=== PATIENT | female | born 1950 | race African-American/Black ===

== ENCOUNTER → 2017-09-15 | Outpatient (CLI) | payer MEDICARE | END | disposition home or self-care (01) | LOC: ECHO 09:59 | DX: I25.10 Atherosclerotic heart disease of native coronary artery without angina pectoris (principal); I08.2 Rheumatic disorders of both aortic and tricuspid valves | CPT/HCPCS: 93306 ==

== ENCOUNTER 2020-06-10 14:00 | Observation (INO) | payer MEDICARE, BC ==
[~2020-06-10] VITALS: Ht 160 cm; Wt 58.8 kg
[~2020-06-10 14:00] MED LIST: ATEN25TA PO; DULO20CA PO; FERR325T58 PO
--- NOTE | 2020-06-10 14:12 | PHYS DOC ---
Past Medical History Past Medical History: CAD, High Cholesterol, Hypertension Smoking Status: Former Smoker (as a teenager) General Adult EDM: Chief Complaint: CHEST PAIN HPI: HPI: Patient is a 70 year old female who arrives via EMS with a chief complaint of chest pain. Patient was about to have a colonoscopy and started having right- sided chest pain that is aching in nature nonradiating, patient states the most pain she was in was 3 out of 10 although EMS reported 9 out of 10. Patient denies any associated symptoms such as shortness of breath, nausea, vomiting or dizziness. Patient received aspirin nitroglycerin prior to arrival. Patient remains pain-free ,pain lasted for approximately 5 minutes Review of Systems: Review of Systems: Constitutional: Denies fever or chills. [] Eyes: Denies change in visual acuity. [] HENT: Denies nasal congestion or sore throat. [] Respiratory: Denies cough or shortness of breath. [] Cardiovascular: Complains of chest pain but no edema GI: Denies abdominal pain, nausea, vomiting, bloody stools or diarrhea. [] : Denies dysuria. [] Musculoskeletal: Denies back pain or joint pain. [] Integument: Denies rash. [] Neurologic: Denies headache, focal weakness or sensory changes. [] Endocrine: Denies polyuria or polydipsia. [] Lymphatic: Denies swollen glands. [] Psychiatric: Denies depression or anxiety. [] Heart Score: HEART Score for Chest Pain: HEART Score for Chest Pain Response (Comments) Value History Slighlty/Non-Suspicious 0 ECG Nonspecific Repolarizatio 1 Age > 65 2 Risk Factors 1 or 2 Risk Factors 1 Troponin < Normal Limit 0 Total 4 Risk Factors: Risk Factors: DM, Current or recent (<one month) smoker, HTN, HLP, family history of CAD, obesity. Risk Scores: Score 0 - 3: 2.5% MACE over next 6 weeks - Discharge Home Score 4 - 6: 20.3% MACE over next 6 weeks - Admit for Clinical Observation Score 7 - 10: 72.7% MACE over next 6 weeks - Early Invasive Strategies Current Medications: Active Scripts Active Physical Exam: PE: Constitutional: Well developed, well nourished, no acute distress, non-toxic appearance. [] HENT: Normocephalic, atraumatic, bilateral external ears normal, no trismus, nose normal. [] Eyes: PERRLA, EOMI, conjunctiva normal, no discharge. [] Neck: Normal range of motion, no tenderness, supple, no stridor. [] Cardiovascular:Heart rate regular rhythm, peripheral pulses are intact cap refill is brisk Lungs & Thorax: Bilateral breath sounds clear, no respiratory distress Abdomen: soft, no tenderness, no masses, no pulsatile masses. [] Skin: Warm, dry, no erythema, no rash. [] Back: No tenderness, no CVA tenderness. [] Extremities: No tenderness, no cyanosis, no clubbing, ROM intact, no edema. [] Neurologic: Alert and oriented X 3, normal motor function, normal sensory function, no focal deficits noted. [] Psychologic: Affect normal, judgement normal, mood normal. [] Current Patient Data: Labs: Laboratory Tests Test 06/10/20 14:45 06/10/20 16:25 White Blood Count 4.8 x10^3/uL Red Blood Count 4.79 x10^6/uL Hemoglobin 13.2 g/dL Hematocrit 39.7 % Mean Corpuscular Volume 83 fL Mean Corpuscular Hemoglobin 28 pg Mean Corpuscular Hemoglobin Concent 33 g/dL Red Cell Distribution Width 14.2 % Platelet Count 152 x10^3/uL Neutrophils (%) (Auto) 71 % Lymphocytes (%) (Auto) 22 % Monocytes (%) (Auto) 6 % Eosinophils (%) (Auto) 1 % Basophils (%) (Auto) 1 % Neutrophils # (Auto) 3.4 x10^3/uL Lymphocytes # (Auto) 1.0 x10^3/uL Monocytes # (Auto) 0.3 x10^3/uL Eosinophils # (Auto) 0.0 x10^3/uL Basophils # (Auto) 0.0 x10^3/uL Sodium Level 144 mmol/L Potassium Level 4.6 mmol/L Chloride Level 107 mmol/L Carbon Dioxide Level 27 mmol/L Anion Gap 10 Blood Urea Nitrogen 14 mg/dL Creatinine 0.8 mg/dL Estimated GFR (Cockcroft-Gault) 85.8 BUN/Creatinine Ratio 18 Glucose Level 86 mg/dL Calcium Level 9.6 mg/dL Magnesium Level 2.6 mg/dL Total Bilirubin 0.5 mg/dL Aspartate Amino Transf (AST/SGOT) 17 U/L Alanine Aminotransferase (ALT/SGPT) 26 U/L Alkaline Phosphatase 74 U/L Troponin I Quantitative < 0.017 ng/mL NI-Ywe-F-Type Natriuretic Peptide 116 pg/mL Total Protein 7.3 g/dL Albumin 4.3 g/dL Albumin/Globulin Ratio 1.4 Lipase 97 U/L Current Medications Medications (Trade) Dose Ordered Sig/Rose Route PRN Reason Start Time Stop Time Status Last Admin Dose Admin Sodium Chloride 500 ml @ 500 mls/hr 1X ONCE IV 06/10/20 16:30 06/10/20 17:29 06/10/20 16:35 Vital Signs: Vital Signs Date Time Temp Pulse Resp B/P (MAP) Pulse Ox O2 Delivery O2 Flow Rate FiO2 06/10/20 15:52 64 21 164/71 (102) 100 Room Air 06/10/20 15:10 70 22 183/86 (118) 100 Room Air 06/10/20 14:40 68 24 180/77 (111) 100 Room Air 06/10/20 14:00 98.0 73 20 179/83 (115) 100 Room Air 98.0 EKG: EKG: EKG interpreted by me normal sinus rhythm with rate of 68 right bundle branch block, normal MT, noNspecific ST changes [] Repeat EKG interpreted by me sinus bradycardia with a rate of 59 left axis deviation right bundle branch block, nonspecific ST changes Radiology/Procedures: Radiology/Procedures: [][facility] [address] [place] [address] IMAGING REPORT Signed PATIENT: RICK ARIAS LACCOUNT: [id number] : 1950 LOCATION: ER AGE: 70 SEX: F EXAM STATUS: PRE ER ORD. PHYSICIAN: JESSE CARMICHAEL MD REASON: R SIDED CHEST PAIN PROCEDURE: PORTABLE CHEST 1V PORTABLE CHEST 1V Clinical History: Reason: R SIDED CHEST PAIN / Spl. Instructions: / History: Technique: AP view of the chest was obtained at 06/10/2020 2:11 PM. Comparison: None. Findings: The heart is borderline enlarged. The pulmonary vasculature is normal. The lungs and pleural margins are clear. Impression: Borderline cardiomegaly. Electronically signed by: Kasandra Cano III, MD (06/10/2020 2:53 PM) [facility] DICTATED and SIGNED BY: KASANDRA CANO III, MD DATE: 06/10/20 3703 Course & Med Decision Making: Course & Med Decision Making Pertinent Labs and Imaging studies reviewed. (See chart for details) [] 70-year-old female presents with chest pain. Patient has a heart score of 4 with a negative troponin. Patient remains chest pain-free during her entire stay in the ER. I discussed with patient admission for rule out TX and she is amenable. Discussed case with Dr. Pollard who will admit. Itz Disclaimer: Itz Disclaimer: This electronic medical record was generated, in whole or in part, using a voice recognition dictation system. Departure Departure Impression: Primary Impression: Chest pain Disposition: 09 ADMITTED INPT THIS HOSP Admitting Physician: LEIGH HARRELL) Condition: STABLE Referrals: GRIS CRUZ MD (PCP) JESSE CARMICHAEL MD Jun 10, 2020 14:12
--- NOTE | 2020-06-10 14:56 | RAD ---
PORTABLE CHEST 1V Clinical History: Reason: R SIDED CHEST PAIN / Spl. Instructions: / History: Technique: AP view of the chest was obtained at 06/10/2020 2:11 PM. Comparison: None. Findings: The heart is borderline enlarged. The pulmonary vasculature is normal. The lungs and pleural margins are clear. Impression: Borderline cardiomegaly. Electronically signed by: Edmundo Fernando III, MD (06/10/2020 2:53 PM) [facility]
[2020-06-10 14:59] LABS: BASO % 1 % (0-3); EOS % 1 % (0-3); HEMATOCRIT 39.7 % (36.0-47.0); HEMOGLOBIN 13.2 g/dL (12.0-15.5); LYMPH % 22 % (24-48); MEAN CORPUSCULAR HEMOGLOBIN 28 pg (25-35); MEAN CORPUSCULAR HGB CONC 33 g/dL (31-37); MEAN CORPUSCULAR VOLUME 83 fL (79-100); MONO # 0.3 x10^3/uL (0.0-1.1); MONO % 6 % (0-9); NEUT # 3.4 x10^3/uL (1.8-7.7); NEUT % 71 % (31-73); PLATELET COUNT 152 x10^3/uL (140-400); RED BLOOD COUNT 4.79 x10^6/uL (3.50-5.40); RED CELL DISTRIBUTION WIDTH 14.2 % (11.5-14.5); WHITE BLOOD COUNT 4.8 x10^3/uL (4.0-11.0)
[2020-06-10] MEDS ORDERED: IV NORMAL SALINE 500ML BAG 500 ML IV ONE (16:30)
[2020-06-10 16:49] LABS: CALCIUM 9.6 mg/dL (8.5-10.1); CREATININE 0.8 mg/dL (0.6-1.0); GFR 85.8; POTASSIUM 4.6 mmol/L (3.5-5.1)
[2020-06-10 16:51] LABS: ALBUMIN 4.3 g/dL (3.4-5.0); ALBUMIN/GLOBULIN RATIO 1.4 (1.0-1.7); MAGNESIUM 2.6 mg/dL (1.8-2.4); TOTAL BILIRUBIN 0.5 mg/dL (0.2-1.0); TOTAL PROTEIN 7.3 g/dL (6.4-8.2)
[2020-06-10] MEDS ORDERED: ONDANSETRON PF 4 MG/2 ML VIAL. IV PRN (17:15)
--- NOTE | 2020-06-10 18:05 | EKG ---
[facility] [address] [place] [address] Test Date: 2020-06-10 Test Time: 16:00:19 Pat Name: RICK ARIAS Department: Room: Gender: F Pediatric Allergist: : 1950 Requested By: JESSE CARMICHAEL Order Number: [id number] Reading MD: Remi Alva Measurements Intervals [place] Rate: 59 P: 62 WA: 150 QRS: -21 QRSD: 122 T: 26 QT: 452 QTc: 448 Interpretive Statements SINUS RHYTHM LEFTWARD AXIS INCOMPLETE RIGHT BUNDLE BRANCH BLOCK Electronically Signed On 06-16-2020 12:06:55 AIR CONDITIONING INSTALLER by Remi Alva
--- NOTE | 2020-06-10 18:06 | EKG ---
[facility] [address] [place] [address] Test Date: 2020-06-10 Test Time: 14:28:09 Pat Name: RICK ARIAS Department: Room: Gender: F Customer Account Coordinator: : 1950 Requested By: JESSE CARMICHAEL Order Number: [id number] Reading MD: Remi Alva Measurements Intervals [place] Rate: 68 P: 66 AL: 156 QRS: -30 QRSD: 122 T: 39 QT: 432 QTc: 465 Interpretive Statements SINUS RHYTHM ABNORMAL LEFT AXIS DEVIATION INCOMPLETE RIGHT BUNDLE BRANCH BLOCK Electronically Signed On 06-16-2020 12:05:42 PLATEN BUILDER UP by Remi Alva
[2020-06-10 20:00] VITALS: BP 160/55
--- NOTE | 2020-06-10 20:00 | NUR ---
The patient, RICK ARIAS, 70 y/o, F admitted by SHARLA LEIGH MD, was given written information regarding hospital policies, unit procedures and contact persons. Valuables were checked and left in room. Pt. refused to lock anything up with security. Pt. continues to not have anymore chest pain and troponins continue to be negative. Will continue to monitor.
[2020-06-10] MEDS ORDERED: ASPI-630 PO (20:12)
[2020-06-10] MEDS ORDERED: METO-239 PO (20:12)
[2020-06-10] MEDS ORDERED: NITR0.4T22 SL (20:12)
[2020-06-10] MEDS ORDERED: PANT40TA6 PO (20:12)
[2020-06-10] MEDS ORDERED: SIMV20TA18 PO (20:12)
[2020-06-10] MEDS ORDERED: vit d3 PO (20:15)
[2020-06-10] MEDS ORDERED: MECL-75 PO (20:15)
--- NOTE | 2020-06-10 20:54 | PDOC1 ---
History and Physical Date of Admission Date of Admission DATE: 06/10/20 TIME: 20:52 Identification/Chief Complaint Chief Complaint Chest pain Source Source: Patient History of Present Illness History of Present Illness Patient is a 70 yo female with PMHx HTN, HLD, who presents to the ER with complaint of sudden onset right sided chest pain this afternoon. She had completed a bowel preparation last night and was about to undergo endoscopy, when she began having right sided chest pain. She reports sharp pain, 3/10, without radiation. Her symptoms lasted approximatley 25 min, resolving with Aspirin and Nitroglycerin. She deneis any history of [place], and states her Hot Dog Vendor is Dr. Alva. Past Medical History Past Medical History HTN, HLD Past Surgical History Past Surgical History: No pertinent history Family History Family History: Coronary Artery Disease Social History Smoke: No ALCOHOL: occassional Drugs: None Current Problem List Problem List Problems Medical Problems: (1) Chest pain Status: Acute Current Medications Current Medications Current Medications Sodium Chloride 500 ml @ 500 mls/hr 1X ONCE IV Last administered on 06/10/20at 16:35; Start 06/10/20 at 16:30; Stop 06/10/20 at 17:29; Status DC Ondansetron HCl (Zofran) 4 mg PRN Q8HRS PRN IV NAUSEA/VOMITING; Start 06/10/20 at 17:15; Stop 06/11/20 at 17:14 Hydroxyzine HCl (Atarax) 25 mg QHS PRN PO INSOMNIA; Start 06/10/20 at 21:00; Status UNV Tramadol HCl (Ultram) 50 mg PRN Q6HRS PRN PO PAIN; Start 06/10/20 at 21:00; Status UNV Active Scripts Active Reported [vit d3] 2,000 Intlu PO DAILY Meclizine Hcl 25 Mg Tablet 1 Tab PO PRN TID NITROGLYCERIN SubLingual (Nitroglycerin) 0.4 Mg Tab.subl 0.4 Mg SL PRN Q5MIN PRN Aspirin 81 Mg Tab.chew 2 Tab PO DAILY Pantoprazole Sodium 40 Mg Tablet.dr 1 Tab PO DAILY Simvastatin 20 Mg Tablet 1 Tab PO QHS Metoprolol Succinate ( Xl ) (Metoprolol Succinate) 25 Mg Tab.er.24h 1 Tab PO DAILY Allergies Allergies: Coded Allergies: esomeprazole (Verified Adverse Reaction, Severe, LOWER OXYGENATION LEVELS, 10/28/20) ROS Review of System GENERAL: No history of weight change, weakness or fevers. SKIN: No bruising, hair changes or rashes. EYES: No blurred, double or loss of vision. NOSE AND THROAT: No history of nosebleeds, hoarseness or sore throat. HEART: Chest pain. Denies palpitations. LUNGS: Denies cough, hemoptysis, wheezing or shortness of breath. GASTROINTESTINAL: Denies nausea, vomiting, abdominal pain. GENITOURINARY: Denies dysuria, frequency, urgency, hematuria. NEUROLOGIC: Denies history of numbness, tingling, tremor or weakness. PSYCHIATRIC: Denies anxiety, denies depression. ENDOCRINE: No history of heat or cold intolerance, polyuria or polydipsia. EXTREMITIES: Denies muscle weakness, joint pain, pain on walking or stiffness. Physical Exam Physical Exam General: Alert, Oriented X3, Cooperative, No acute distress HEENT: PERRLA, EOMI Lungs: Clear to auscultation, Normal air movement Heart: RRR, systolic murmur Cardiovascular: S1, S2 Abdomen: Normal bowel sounds, Soft, No tenderness Extremities: No clubbing, No cyanosis Skin: No rashes, No significant lesion Neuro: Normal speech, Normal tone, Sensation intact Psych/Mental Status: Mental status NL, Mood NL Vitals Vitals Vital Signs Date Time Temp Pulse Resp B/P (MAP) Pulse Ox O2 Delivery O2 Flow Rate FiO2 06/10/20 19:10 74 22 176/74 (108) 99 Room Air 06/10/20 14:00 98.0 98.0 Labs Labs Laboratory Tests Test 06/10/20 14:45 06/10/20 16:25 White Blood Count 4.8 x10^3/uL (4.0-11.0) Red Blood Count 4.79 x10^6/uL (3.50-5.40) Hemoglobin 13.2 g/dL (12.0-15.5) Hematocrit 39.7 % (36.0-47.0) Mean Corpuscular Volume 83 fL (79-100) Mean Corpuscular Hemoglobin 28 pg (25-35) Mean Corpuscular Hemoglobin Concent 33 g/dL (31-37) Red Cell Distribution Width 14.2 % (11.5-14.5) Platelet Count 152 x10^3/uL (140-400) Neutrophils (%) (Auto) 71 % (31-73) Lymphocytes (%) (Auto) 22 % (24-48) Monocytes (%) (Auto) 6 % (0-9) Eosinophils (%) (Auto) 1 % (0-3) Basophils (%) (Auto) 1 % (0-3) Neutrophils # (Auto) 3.4 x10^3/uL (1.8-7.7) Lymphocytes # (Auto) 1.0 x10^3/uL (1.0-4.8) Monocytes # (Auto) 0.3 x10^3/uL (0.0-1.1) Eosinophils # (Auto) 0.0 x10^3/uL (0.0-0.7) Basophils # (Auto) 0.0 x10^3/uL (0.0-0.2) Sodium Level 144 mmol/L (136-145) Potassium Level 4.6 mmol/L (3.5-5.1) Chloride Level 107 mmol/L (98-107) Carbon Dioxide Level 27 mmol/L (21-32) Anion Gap 10 (6-14) Blood Urea Nitrogen 14 mg/dL (7-20) Creatinine 0.8 mg/dL (0.6-1.0) Estimated GFR (Cockcroft-Gault) 85.8 BUN/Creatinine Ratio 18 (6-20) Glucose Level 86 mg/dL (70-99) Calcium Level 9.6 mg/dL (8.5-10.1) Magnesium Level 2.6 mg/dL (1.8-2.4) Total Bilirubin 0.5 mg/dL (0.2-1.0) Aspartate Amino Transf (AST/SGOT) 17 U/L (15-37) Alanine Aminotransferase (ALT/SGPT) 26 U/L (14-59) Alkaline Phosphatase 74 U/L (46-116) Troponin I Quantitative < 0.017 ng/mL (0.000-0.055) EA-Uhz-X-Type Natriuretic Peptide 116 pg/mL (0-124) Total Protein 7.3 g/dL (6.4-8.2) Albumin 4.3 g/dL (3.4-5.0) Albumin/Globulin Ratio 1.4 (1.0-1.7) Lipase 97 U/L (73-393) Laboratory Tests Test 06/10/20 14:45 06/10/20 16:25 White Blood Count 4.8 x10^3/uL (4.0-11.0) Red Blood Count 4.79 x10^6/uL (3.50-5.40) Hemoglobin 13.2 g/dL (12.0-15.5) Hematocrit 39.7 % (36.0-47.0) Mean Corpuscular Volume 83 fL (79-100) Mean Corpuscular Hemoglobin 28 pg (25-35) Mean Corpuscular Hemoglobin Concent 33 g/dL (31-37) Red Cell Distribution Width 14.2 % (11.5-14.5) Platelet Count 152 x10^3/uL (140-400) Neutrophils (%) (Auto) 71 % (31-73) Lymphocytes (%) (Auto) 22 % (24-48) Monocytes (%) (Auto) 6 % (0-9) Eosinophils (%) (Auto) 1 % (0-3) Basophils (%) (Auto) 1 % (0-3) Neutrophils # (Auto) 3.4 x10^3/uL (1.8-7.7) Lymphocytes # (Auto) 1.0 x10^3/uL (1.0-4.8) Monocytes # (Auto) 0.3 x10^3/uL (0.0-1.1) Eosinophils # (Auto) 0.0 x10^3/uL (0.0-0.7) Basophils # (Auto) 0.0 x10^3/uL (0.0-0.2) Sodium Level 144 mmol/L (136-145) Potassium Level 4.6 mmol/L (3.5-5.1) Chloride Level 107 mmol/L (98-107) Carbon Dioxide Level 27 mmol/L (21-32) Anion Gap 10 (6-14) Blood Urea Nitrogen 14 mg/dL (7-20) Creatinine 0.8 mg/dL (0.6-1.0) Estimated GFR (Cockcroft-Gault) 85.8 BUN/Creatinine Ratio 18 (6-20) Glucose Level 86 mg/dL (70-99) Calcium Level 9.6 mg/dL (8.5-10.1) Magnesium Level 2.6 mg/dL (1.8-2.4) Total Bilirubin 0.5 mg/dL (0.2-1.0) Aspartate Amino Transf (AST/SGOT) 17 U/L (15-37) Alanine Aminotransferase (ALT/SGPT) 26 U/L (14-59) Alkaline Phosphatase 74 U/L (46-116) Troponin I Quantitative < 0.017 ng/mL (0.000-0.055) DZ-Qdb-M-Type Natriuretic Peptide 116 pg/mL (0-124) Total Protein 7.3 g/dL (6.4-8.2) Albumin 4.3 g/dL (3.4-5.0) Albumin/Globulin Ratio 1.4 (1.0-1.7) Lipase 97 U/L (73-393) Images Images PORTABLE CHEST 1V Clinical History: Reason: R SIDED CHEST PAIN / Spl. Instructions: / History: Technique: AP view of the chest was obtained at 06/10/2020 2:11 PM. Comparison: None. Findings: The heart is borderline enlarged. The pulmonary vasculature is normal. The lungs and pleural margins are clear. Impression: Borderline cardiomegaly. VTE Prophylaxis Ordered VTE Prophylaxis Devices: Yes VTE Pharmacological Prophylaxi: No Assessment/Plan Assessment/Plan Acute coronary syndrome Plan: Will trend troponins, initial troponins <0.017 x 2 Consult cardiology Morphine as needed chest pain Supplemental oxygen as needed Resume home medications FEN - Cardiac diet PPX - SCDs FULL CODE Dispo - observation for above Justifications for Admission Other Justification SHARLA LEIGH MD Jun 10, 2020 20:54
[2020-06-10] MEDS ORDERED: ACETAMINOPHEN 325 MG TABLET. PO PRN (21:00)
[2020-06-10] MEDS ORDERED: PROCHLORPERAZINE 10 MG/2 ML VIAL. IVP PRN (21:00)
[2020-06-10] MEDS ORDERED: MAG HYDROX/ALUMINUM HYD/SIMETH 30 ML ORAL.SUSP PO PRN (21:00)
[2020-06-10] MEDS ORDERED: hydrOXYzine 25 MG TABLET PO PRN (21:00)
[2020-06-10] MEDS ORDERED: IBUPROFEN 400 MG TABLET. PO PRN (21:00)
[2020-06-10] MEDS ORDERED: traMADol 50 MG TABLET PO PRN (21:00)
[2020-06-10] MEDS ORDERED: CALCIUM CARBONATE 500 MG TAB.CHEW PO PRN (21:00)
[2020-06-10] MEDS ORDERED: BISACODYL 10 MG SUPP.RECT. PR PRN (21:00)
[2020-06-10] MEDS ORDERED: MORPHINE SULFATE 2 MG/ML VIAL. IV PRN ×2 (21:00)
[2020-06-10] MEDS ORDERED: MAGNESIUM HYDROXIDE 2,400 MG/30 ML ORAL.SUSP. PO PRN (21:00)
[2020-06-10] MEDS ORDERED: ONDANSETRON PF 4 MG/2 ML VIAL. IVP PRN (21:00)
[2020-06-10] MEDS ORDERED: ASPIRIN CHEWABLE 81 MG TABLET. PO SCH (22:00)
[2020-06-10] MEDS ORDERED: NITROGLYCERIN SUBLINGUAL 0.4 MG BOTTLE OF 25. SL PRN (22:00)
[2020-06-10] MEDS ORDERED: MECLIZINE HCL 12.5 MG TABLET. PO PRN (22:00)
[2020-06-10] MEDS ORDERED: SIMVASTATIN 20 MG TABLET PO SCH (22:00)
[2020-06-10 23:00] VITALS: BP 152/67
[2020-06-11 03:00] VITALS: BP 154/61
--- NOTE | 2020-06-11 04:06 | EKG ---
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
[2020-06-11 07:00] VITALS: BP 149/52
[2020-06-11] MEDS ORDERED: PANTOPRAZOLE 40 MG TABLET.DR. PO SCH (07:30)
[2020-06-11] MEDS ORDERED: FLU VACC QS 2020-21(6MOS+)/PF 0.5 ML SYRINGE. VAX IM ONE (09:00)
[2020-06-11] MEDS ORDERED: CHOLECALCIFEROL (VITAMIN D3) 1,000 UNIT TABLET PO SCH (09:00)
[2020-06-11] MEDS ORDERED: METOPROLOL SUCC 24HR ER 25 MG TAB.ER.24H. PO SCH (09:00)
--- NOTE | 2020-06-11 09:15 | PDOC ---
[employer] PROGRESS NOTE Date of Service DOS: DATE: 06/11/20 TIME: 09:15 Chief Complaint Chief Complaint A/P: Chest pain - admitted for ACS r/o. neg trop x3 HTN HLD GERD on PPI. H/o pancreatitis - no clear reason in 2017 FEN - General diet PPX - lovenox FULL CODE Dispo - ok for d/c with outpatient reschedule of c-scope History of Present Illness History of Present Illness Ms Melendez is a 70 yo female with PMHx HTN, HLD, who presents to the ER with complaint of sudden onset right sided chest pain in the afternoon on 06/10/2020. Completed a bowel preparation 06/09 overnight and was about to undergo colonoscopy, when she began having right sided chest pain. She reported sharp pain, 3/10, without radiation. Her symptoms lasted approximatley 25 min, resolving with Aspirin and Nitroglycerin. She denies any history of [place], and states her Music Industry Intern is Dr. Alva. Ate regular food last night, NPO today. Intermittent epigastric pain after eating. Chest pain has completely resolved. No SOB. mild VALDOVINOS. decreased BB to marely f per cardiology for bradycardia and added amlodipine for anginal sx. Vitals/I&O Vitals/I&O: Vital Signs Date Time Temp Pulse Resp B/P (MAP) Pulse Ox O2 Delivery O2 Flow Rate FiO2 06/11/20 08:31 56 149/52 06/11/20 07:00 98.1 18 98 Room Air 98.1 I & O 06/10/20 06/10/20 06/11/20 15:00 23:00 07:00 Intake Total 500 ml 200 ml Balance 500 ml 200 ml Physical Exam General: Alert, Oriented X3, Cooperative Heart: Regular rate, Normal S1, Normal S2 Lungs: Clear Abdomen: Normal bowel sounds, Soft Extremities: No clubbing, No cyanosis Skin: No rashes, No breakdown Labs Labs: Laboratory Tests Test 06/10/20 14:45 06/10/20 16:25 06/10/20 20:30 06/10/20 23:00 White Blood Count 4.8 x10^3/uL (4.0-11.0) Red Blood Count 4.79 x10^6/uL (3.50-5.40) Hemoglobin 13.2 g/dL (12.0-15.5) Hematocrit 39.7 % (36.0-47.0) Mean Corpuscular Volume 83 fL (79-100) Mean Corpuscular Hemoglobin 28 pg (25-35) Mean Corpuscular Hemoglobin Concent 33 g/dL (31-37) Red Cell Distribution Width 14.2 % (11.5-14.5) Platelet Count 152 x10^3/uL (140-400) Neutrophils (%) (Auto) 71 % (31-73) Lymphocytes (%) (Auto) 22 % (24-48) Monocytes (%) (Auto) 6 % (0-9) Eosinophils (%) (Auto) 1 % (0-3) Basophils (%) (Auto) 1 % (0-3) Neutrophils # (Auto) 3.4 x10^3/uL (1.8-7.7) Lymphocytes # (Auto) 1.0 x10^3/uL (1.0-4.8) Monocytes # (Auto) 0.3 x10^3/uL (0.0-1.1) Eosinophils # (Auto) 0.0 x10^3/uL (0.0-0.7) Basophils # (Auto) 0.0 x10^3/uL (0.0-0.2) Sodium Level 144 mmol/L (136-145) Potassium Level 4.6 mmol/L (3.5-5.1) Chloride Level 107 mmol/L (98-107) Carbon Dioxide Level 27 mmol/L (21-32) Anion Gap 10 (6-14) Blood Urea Nitrogen 14 mg/dL (7-20) Creatinine 0.8 mg/dL (0.6-1.0) Estimated GFR (Cockcroft-Gault) 85.8 BUN/Creatinine Ratio 18 (6-20) Glucose Level 86 mg/dL (70-99) Calcium Level 9.6 mg/dL (8.5-10.1) Magnesium Level 2.6 mg/dL (1.8-2.4) Total Bilirubin 0.5 mg/dL (0.2-1.0) Aspartate Amino Transf (AST/SGOT) 17 U/L (15-37) Alanine Aminotransferase (ALT/SGPT) 26 U/L (14-59) Alkaline Phosphatase 74 U/L (46-116) Troponin I Quantitative < 0.017 ng/mL (0.000-0.055) < 0.017 ng/mL (0.000-0.055) < 0.017 ng/mL (0.000-0.055) LX-Anx-Y-Type Natriuretic Peptide 116 pg/mL (0-124) Total Protein 7.3 g/dL (6.4-8.2) Albumin 4.3 g/dL (3.4-5.0) Albumin/Globulin Ratio 1.4 (1.0-1.7) Lipase 97 U/L (73-393) Assessment and Plan Assessmemt and Plan Problems Medical Problems: (1) Chest pain Status: Acute Comment Review of Relevant I have reviewed the following items ayo (where applicable) has been applied. Medications: Current Medications Medications (Trade) Dose Ordered Sig/Rose Route PRN Reason Start Time Stop Time Status Last Admin Dose Admin Sodium Chloride 500 ml @ 500 mls/hr 1X ONCE IV 06/10/20 16:30 06/10/20 17:29 DC 06/10/20 16:35 Metoprolol Succinate (Toprol Xl) 25 mg DAILY PO 06/11/20 09:00 06/11/20 08:31 Pantoprazole Sodium (Protonix) 40 mg DAILYAC PO 06/11/20 07:30 06/11/20 08:31 Vitamin D (Vitamin D3) 2,000 unit DAILY PO 06/11/20 09:00 06/11/20 08:31 Simvastatin (Zocor) 20 mg QHS PO 06/10/20 22:00 06/10/20 22:18 Influenza Virus Vaccine Quadrival (Fluzone Quad Syringe) 0.5 ml ONCE ONCE VAX IM 06/11/20 09:00 06/11/20 09:01 DC 06/11/20 08:32 Justifications for Admission Other Justification DOMINCIK ROSADO MD Jun 11, 2020 09:15
--- NOTE | 2020-06-11 10:05 | PDOC2 ---
SHELLY LEMA FILAMENT SHAPER 06/11/20 1005: CARDIAC CONSULT DATE OF CONSULT Date of Consult DATE: 06/11/20 TIME: 10:00 REASON FOR CONSULT Reason for Consult: Chest pain REFERRING PHYSICIAN Referring Physician: Marianna SOURCE Source: Chart review HISTORY OF PRESENT ILLNESS HISTORY OF PRESENT ILLNESS This is a pleasant 70 yo female admitted for complains of chest pain and high BP. Reports that she started her bowel prep this week and finally cleared Monday morning and getting set up for colonoscopy as an outpt. She was at [facility]. When her BP was checked it was in the 200s citing that the last time she took her BP med was Monday as she thought she was told she needed to hold her med. At the same time she was having right sided chest pain pressure. This lasted 5 minutes. Her procedure was cancelled and was brought to ED. Denies any vomiting, no SOA and no palpitations. Her BP got better after resumption of her BB but her HR noted in the 40s at times overnight but no symptoms. No frequent dizziness or passing out. Denies any exertional CP nor ORELLANA and tolerated the bowel prep. PAST MEDICAL HISTORY Cardiovascular: CAD (mild), HTN, Hyperlipidemia GI: GERD, Other (esophageal stricture) Heme/Onc: No pertinent hx Hepatobiliary: No pertinent hx Psych: Anxiety Musculoskeletal: Osteoarthritis Rheumatologic: No pertinent hx Infectious disease: No pertinent hx ENT: No pertinent hx Renal/: No pertinent hx Endocrine: Osteoporosis Dermatology: No pertinent hx PAST SURGICAL HISTORY Past Surgical History: Appendectomy, Tubal Ligation FAMILY HISTORY Family History noncontributory SOCIAL HISTORY Smoke: No ALCOHOL: rare Drugs: None Lives: Alone CURRENT MEDICATIONS CURRENT MEDICATIONS Current Medications Medications (Trade) Dose Ordered Sig/Rose Route PRN Reason Start Time Stop Time Status Last Admin Dose Admin Sodium Chloride 500 ml @ 500 mls/hr 1X ONCE IV 06/10/20 16:30 06/10/20 17:29 DC 06/10/20 16:35 Metoprolol Succinate (Toprol Xl) 25 mg DAILY PO 06/11/20 09:00 06/11/20 08:31 Pantoprazole Sodium (Protonix) 40 mg DAILYAC PO 06/11/20 07:30 06/11/20 08:31 Vitamin D (Vitamin D3) 2,000 unit DAILY PO 06/11/20 09:00 06/11/20 08:31 Simvastatin (Zocor) 20 mg QHS PO 06/10/20 22:00 06/10/20 22:18 Influenza Virus Vaccine Quadrival (Fluzone Quad Syringe) 0.5 ml ONCE ONCE VAX IM 06/11/20 09:00 06/11/20 09:01 DC 06/11/20 08:32 ALLERGIES ALLERGIES: Coded Allergies: esomeprazole (Verified Adverse Reaction, Severe, LOWER OXYGENATION LEVELS, 06/10/20) PATIENT TAKES PANTOPRAZOLE 40MG PO DAILY HOME MED ROS Review of System 14 point ROS evaluated with pertinent positives noted per HPI PHYSICAL EXAM General: Alert, Oriented X3, Cooperative, No acute distress HEENT: Atraumatic, Mucous membr. moist/pink Lungs: Clear to auscultation, Normal air movement Heart: Regular rate (SR), Normal S1, Normal S2, Other (2/6 systolic murmur to LLS border) Abdomen: Soft, No tenderness Extremities: No cyanosis, No edema Skin: No breakdown, No significant lesion Neuro: Normal speech, Sensation intact Psych/Mental Status: Mental status NL, Mood NL MUSCULOSKELETAL: Osteoarthritic changes both hands VITALS/I&O VITALS/I&O: Vital Signs Date Time Temp Pulse Resp B/P (MAP) Pulse Ox O2 Delivery O2 Flow Rate FiO2 06/11/20 08:31 56 149/52 06/11/20 07:00 98.1 18 98 Room Air 98.1 I & O 06/10/20 06/10/20 06/11/20 15:00 23:00 07:00 Intake Total 500 ml 200 ml Balance 500 ml 200 ml LABS Lab: Laboratory Tests Test 06/10/20 14:45 06/10/20 16:25 06/10/20 20:30 06/10/20 23:00 White Blood Count 4.8 x10^3/uL (4.0-11.0) Red Blood Count 4.79 x10^6/uL (3.50-5.40) Hemoglobin 13.2 g/dL (12.0-15.5) Hematocrit 39.7 % (36.0-47.0) Mean Corpuscular Volume 83 fL (79-100) Mean Corpuscular Hemoglobin 28 pg (25-35) Mean Corpuscular Hemoglobin Concent 33 g/dL (31-37) Red Cell Distribution Width 14.2 % (11.5-14.5) Platelet Count 152 x10^3/uL (140-400) Neutrophils (%) (Auto) 71 % (31-73) Lymphocytes (%) (Auto) 22 % (24-48) L Monocytes (%) (Auto) 6 % (0-9) Eosinophils (%) (Auto) 1 % (0-3) Basophils (%) (Auto) 1 % (0-3) Neutrophils # (Auto) 3.4 x10^3/uL (1.8-7.7) Lymphocytes # (Auto) 1.0 x10^3/uL (1.0-4.8) Monocytes # (Auto) 0.3 x10^3/uL (0.0-1.1) Eosinophils # (Auto) 0.0 x10^3/uL (0.0-0.7) Basophils # (Auto) 0.0 x10^3/uL (0.0-0.2) Sodium Level 144 mmol/L (136-145) Potassium Level 4.6 mmol/L (3.5-5.1) Chloride Level 107 mmol/L (98-107) Carbon Dioxide Level 27 mmol/L (21-32) Anion Gap 10 (6-14) Blood Urea Nitrogen 14 mg/dL (7-20) Creatinine 0.8 mg/dL (0.6-1.0) Estimated GFR (Cockcroft-Gault) 85.8 BUN/Creatinine Ratio 18 (6-20) Glucose Level 86 mg/dL (70-99) Calcium Level 9.6 mg/dL (8.5-10.1) Magnesium Level 2.6 mg/dL (1.8-2.4) H Total Bilirubin 0.5 mg/dL (0.2-1.0) Aspartate Amino Transferase (AST) 17 U/L (15-37) Alanine Aminotransferase (ALT) 26 U/L (14-59) Alkaline Phosphatase 74 U/L (46-116) Troponin I Quantitative < 0.017 ng/mL (0.000-0.055) < 0.017 ng/mL (0.000-0.055) < 0.017 ng/mL (0.000-0.055) GA-Unl-B-Type Natriuretic Peptide 116 pg/mL (0-124) Total Protein 7.3 g/dL (6.4-8.2) Albumin 4.3 g/dL (3.4-5.0) Albumin/Globulin Ratio 1.4 (1.0-1.7) Lipase 97 U/L (73-393) Laboratory Tests 06/10/20 14:45 Laboratory Tests 06/10/20 16:25 ECHOCARDIOGRAM ECHOCARDIOGRAM <Conclusion> The left ventricular systolic function is normal. The Ejection Fraction is 60-65%. There is normal LV segmental wall motion. Mild to moderate aortic regurgitation. Trace mitral regurgitation. Mild tricuspid regurgitation. There is no evidence of significant pericardial effusion. DATE: 09/15/17 1208 STRESS TEST STRESS TEST Conclusion 1. Regadenoson cardioisotope stress test did not show any evidence of ischemia or infarct. 2. Normal left ventricular systolic function with ejection fraction calculated at 69%. 3. Low risk for cardiac events. DATE: 10/09/15 1751 ASSESSMENT/PLAN ASSESSMENT/PLAN 1. Atypical CP: possibly from anxiety and uncontrolled HTN 2. Asymptomatic SB: intermittently in mid40s, no pauses 3. Hx of Nonobstructive CAD 4. HLP 5. RBBB: likely chronic 6. HTN urgency: better Recommendations May proceed with colonoscopy Decrease toprol and start on norvasc Continue statin . ASA Will obtain outpt TTE prior to next follow up. LORENZO VALDEZ MD 06/12/20 1010: CARDIAC CONSULT ASSESSMENT/PLAN ASSESSMENT/PLAN Patient seen and examined 06/11/20. Agree with WEEKDAY BABYSITTER's assessment and plan. Chest pain with atypical features. Myocardial infarction has been ruled out. Blood pressure better controlled. Agree with decreasing Toprol dose secondary to bradycardia and initiate Norvasc. Okay to proceed with colonoscopy. Follow-up with our office as scheduled. SHELLY LEMA APRN Jun 11, 2020 10:05 LORENZO VALDEZ MD Jun 12, 2020 10:10
[2020-06-11 11:00] VITALS: BP 138/72
--- NOTE | 2020-06-11 12:36 | PDOC ---
Date of Service: DATE: 06/11/20 TIME: 12:28 Subjective: Subjective: Sent to [facility] from [facility] yesterday afternoon for HTN and chest pain. Had screening colonoscopy scheduled there - completed prep. Ate regular food last night, NPO today. No COVID test done here. D/w cardiology - cleared for scope. We are asked to see re: this today. H/o GERD on PPI. H/o pancreatitis - unclear etiology 2 years ago. Intermittent epigastric pain after eating. On ASA. Objective: Vital Signs: Vital Signs Date Time Temp Pulse Resp B/P (MAP) Pulse Ox O2 Delivery O2 Flow Rate FiO2 06/11/20 08:31 56 149/52 06/11/20 08:00 Room Air 06/11/20 07:00 98.1 18 98 98.1 Labs: Laboratory Tests Test 06/10/20 14:45 06/10/20 16:25 06/10/20 20:30 06/10/20 23:00 White Blood Count 4.8 x10^3/uL Red Blood Count 4.79 x10^6/uL Hemoglobin 13.2 g/dL Hematocrit 39.7 % Mean Corpuscular Volume 83 fL Mean Corpuscular Hemoglobin 28 pg Mean Corpuscular Hemoglobin Concent 33 g/dL Red Cell Distribution Width 14.2 % Platelet Count 152 x10^3/uL Neutrophils (%) (Auto) 71 % Lymphocytes (%) (Auto) 22 % Monocytes (%) (Auto) 6 % Eosinophils (%) (Auto) 1 % Basophils (%) (Auto) 1 % Neutrophils # (Auto) 3.4 x10^3/uL Lymphocytes # (Auto) 1.0 x10^3/uL Monocytes # (Auto) 0.3 x10^3/uL Eosinophils # (Auto) 0.0 x10^3/uL Basophils # (Auto) 0.0 x10^3/uL Sodium Level 144 mmol/L Potassium Level 4.6 mmol/L Chloride Level 107 mmol/L Carbon Dioxide Level 27 mmol/L Anion Gap 10 Blood Urea Nitrogen 14 mg/dL Creatinine 0.8 mg/dL Estimated GFR (Cockcroft-Gault) 85.8 BUN/Creatinine Ratio 18 Glucose Level 86 mg/dL Calcium Level 9.6 mg/dL Magnesium Level 2.6 mg/dL Total Bilirubin 0.5 mg/dL Aspartate Amino Transf (AST/SGOT) 17 U/L Alanine Aminotransferase (ALT/SGPT) 26 U/L Alkaline Phosphatase 74 U/L Troponin I Quantitative < 0.017 ng/mL < 0.017 ng/mL < 0.017 ng/mL XN-Dkm-X-Type Natriuretic Peptide 116 pg/mL Total Protein 7.3 g/dL Albumin 4.3 g/dL Albumin/Globulin Ratio 1.4 Lipase 97 U/L PE: GEN: NAD LUNGS: CTAB HEART: RRR ABD: NABS, S/ND/NT NEURO/PSYCH: A & O 3 A/P: Chest pain, HTN, CAD GERD - on PPI H/o pancreatitis - in 2018, unclear etiology CRC screen -- Discussion w/ cardiology, Dr. Aguila, pt, GI lab, hospitalist. Okay to DC w/ plans for outpt colonoscopy/reprep - our office will call to arrange. Justicifation of Admission Dx: Justifications for Admission: Justification of Admission Dx: Yes CYNTHIA ZARCO Jun 11, 2020 12:36
[2020-06-11] MEDS ORDERED: METO-239 PO (13:55)
[2020-06-11] MEDS ORDERED: AMLO-186 PO (13:55)
--- NOTE | 2020-06-11 14:35 | PDOC3 ---
Discharge Summary Visit Information Date of Admission: Jun 10, 2020 Date of Discharge: Jun 11, 2020 Admitting Diagnosis: Chest pain Final Diagnosis Problems Medical Problems: (1) Chest pain Status: Acute Brief Hospital Course Allergies Allergies Coded Allergies Type Severity Reaction Last Updated Verified esomeprazole Adverse Reaction Severe LOWER OXYGENATION LEVELS 06/10/20 Yes Vital Signs Vital Signs Date Time Temp Pulse Resp B/P (MAP) Pulse Ox O2 Delivery O2 Flow Rate FiO2 06/11/20 11:00 98.1 58 18 138/72 (94) 100 Room Air 98.1 Lab Results Laboratory Tests Test 06/10/20 14:45 06/10/20 16:25 06/10/20 20:30 06/10/20 23:00 White Blood Count 4.8 x10^3/uL (4.0-11.0) Red Blood Count 4.79 x10^6/uL (3.50-5.40) Hemoglobin 13.2 g/dL (12.0-15.5) Hematocrit 39.7 % (36.0-47.0) Mean Corpuscular Volume 83 fL (79-100) Mean Corpuscular Hemoglobin 28 pg (25-35) Mean Corpuscular Hemoglobin Concent 33 g/dL (31-37) Red Cell Distribution Width 14.2 % (11.5-14.5) Platelet Count 152 x10^3/uL (140-400) Neutrophils (%) (Auto) 71 % (31-73) Lymphocytes (%) (Auto) 22 % (24-48) Monocytes (%) (Auto) 6 % (0-9) Eosinophils (%) (Auto) 1 % (0-3) Basophils (%) (Auto) 1 % (0-3) Neutrophils # (Auto) 3.4 x10^3/uL (1.8-7.7) Lymphocytes # (Auto) 1.0 x10^3/uL (1.0-4.8) Monocytes # (Auto) 0.3 x10^3/uL (0.0-1.1) Eosinophils # (Auto) 0.0 x10^3/uL (0.0-0.7) Basophils # (Auto) 0.0 x10^3/uL (0.0-0.2) Sodium Level 144 mmol/L (136-145) Potassium Level 4.6 mmol/L (3.5-5.1) Chloride Level 107 mmol/L (98-107) Carbon Dioxide Level 27 mmol/L (21-32) Anion Gap 10 (6-14) Blood Urea Nitrogen 14 mg/dL (7-20) Creatinine 0.8 mg/dL (0.6-1.0) Estimated GFR (Cockcroft-Gault) 85.8 BUN/Creatinine Ratio 18 (6-20) Glucose Level 86 mg/dL (70-99) Calcium Level 9.6 mg/dL (8.5-10.1) Magnesium Level 2.6 mg/dL (1.8-2.4) Total Bilirubin 0.5 mg/dL (0.2-1.0) Aspartate Amino Transf (AST/SGOT) 17 U/L (15-37) Alanine Aminotransferase (ALT/SGPT) 26 U/L (14-59) Alkaline Phosphatase 74 U/L (46-116) Troponin I Quantitative < 0.017 ng/mL (0.000-0.055) < 0.017 ng/mL (0.000-0.055) < 0.017 ng/mL (0.000-0.055) FA-Kgb-M-Type Natriuretic Peptide 116 pg/mL (0-124) Total Protein 7.3 g/dL (6.4-8.2) Albumin 4.3 g/dL (3.4-5.0) Albumin/Globulin Ratio 1.4 (1.0-1.7) Lipase 97 U/L (73-393) Laboratory Tests Test 06/10/20 14:45 06/10/20 16:25 06/10/20 20:30 06/10/20 23:00 White Blood Count 4.8 x10^3/uL (4.0-11.0) Red Blood Count 4.79 x10^6/uL (3.50-5.40) Hemoglobin 13.2 g/dL (12.0-15.5) Hematocrit 39.7 % (36.0-47.0) Mean Corpuscular Volume 83 fL (79-100) Mean Corpuscular Hemoglobin 28 pg (25-35) Mean Corpuscular Hemoglobin Concent 33 g/dL (31-37) Red Cell Distribution Width 14.2 % (11.5-14.5) Platelet Count 152 x10^3/uL (140-400) Neutrophils (%) (Auto) 71 % (31-73) Lymphocytes (%) (Auto) 22 % (24-48) Monocytes (%) (Auto) 6 % (0-9) Eosinophils (%) (Auto) 1 % (0-3) Basophils (%) (Auto) 1 % (0-3) Neutrophils # (Auto) 3.4 x10^3/uL (1.8-7.7) Lymphocytes # (Auto) 1.0 x10^3/uL (1.0-4.8) Monocytes # (Auto) 0.3 x10^3/uL (0.0-1.1) Eosinophils # (Auto) 0.0 x10^3/uL (0.0-0.7) Basophils # (Auto) 0.0 x10^3/uL (0.0-0.2) Sodium Level 144 mmol/L (136-145) Potassium Level 4.6 mmol/L (3.5-5.1) Chloride Level 107 mmol/L (98-107) Carbon Dioxide Level 27 mmol/L (21-32) Anion Gap 10 (6-14) Blood Urea Nitrogen 14 mg/dL (7-20) Creatinine 0.8 mg/dL (0.6-1.0) Estimated GFR (Cockcroft-Gault) 85.8 BUN/Creatinine Ratio 18 (6-20) Glucose Level 86 mg/dL (70-99) Calcium Level 9.6 mg/dL (8.5-10.1) Magnesium Level 2.6 mg/dL (1.8-2.4) Total Bilirubin 0.5 mg/dL (0.2-1.0) Aspartate Amino Transf (AST/SGOT) 17 U/L (15-37) Alanine Aminotransferase (ALT/SGPT) 26 U/L (14-59) Alkaline Phosphatase 74 U/L (46-116) Troponin I Quantitative < 0.017 ng/mL (0.000-0.055) < 0.017 ng/mL (0.000-0.055) < 0.017 ng/mL (0.000-0.055) GI-Twu-I-Type Natriuretic Peptide 116 pg/mL (0-124) Total Protein 7.3 g/dL (6.4-8.2) Albumin 4.3 g/dL (3.4-5.0) Albumin/Globulin Ratio 1.4 (1.0-1.7) Lipase 97 U/L (73-393) Brief Hospital Course Ms Melendez is a 70 yo female with PMHx HTN, HLD, who presents to the ER with complaint of sudden onset right sided chest pain in the afternoon on 06/10/2020. Completed a bowel preparation 06/09 overnight and was about to undergo colonoscopy, when she began having right sided chest pain. She reported sharp pain, 3/10, without radiation. Her symptoms lasted approximatley 25 min, resolving with Aspirin and Nitroglycerin. 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 Ate regular food last night, NPO today. Intermittent epigastric pain after eating. Chest pain has completely resolved. No SOB. mild VALDOVINOS. decreased BB to half per cardiology for bradycardia and added amlodipine for anginal sx. Consults: Cardiology, GI Chest pain - admitted for ACS r/o. neg trop x3 HTN HLD GERD on PPI. H/o pancreatitis - no clear reason in 2018 Dispo - ok for d/c with outpatient reschedule of c-scope Greater than 30 minutes spent on d/c home Discharge Information Condition at Discharge: Improved Follow Up: Weeks Disposition/Orders: D/C to Home Scheduled Amlodipine Besylate (Amlodipine Besylate) 5 Mg Tablet, 5 MG PO DAILY for HTN for 90 Days, #90 Prescribed by: DOMINICK ROSADO MD on 06/11/20 1355 Aspirin (Aspirin) 81 Mg Tab.chew, 2 TAB PO HS for heart, #30 Ref 3 (Reported) Entered as Reported by: JO ANN PARRISH on 06/10/202011 Last Action: Continued on 06/10/202158 by JO ANN PARRISH Meclizine Hcl (Meclizine Hcl) 25 Mg Tablet, 1 TAB PO PRN TID for dizziness, #30 (Reported) Entered as Reported by: JO ANN PARRISH on 06/10/202014 Last Action: Converted on 06/10/202158 by JO ANN PARRISH Metoprolol Succinate (Metoprolol Succinate ( Xl )) 25 Mg Tab.er.24h, 0.5 TAB PO DAILY for blood pressure for 30 Days, #15 Ref 2 Prescribed by: DOMINICK ROSADO MD on 06/11/20 1355 Pantoprazole Sodium (Pantoprazole Sodium) 40 Mg Tablet.dr, 1 TAB PO DAILY for gerd, (Reported) Entered as Reported by: JO ANN PARRISH on 06/10/202011 Last Action: Continued on 06/10/202158 by JO ANN PARRISH Simvastatin (Simvastatin) 20 Mg Tablet, 1 TAB PO QHS for cholesterol, (Reported) Entered as Reported by: JO ANN PARRISH on 06/10/202011 Last Action: Continued on 06/10/202158 by JO ANN PARRISH [vit d3] , 2,000 INTLU PO DAILY for vitamins, (Reported) Entered as Reported by: JO ANN PARRISH on 06/10/202014 Last Action: Converted on 06/10/202158 by JO ANN PARRISH Scheduled PRN Nitroglycerin (NITROGLYCERIN SubLingual) 0.4 Mg Tab.subl, 0.4 MG SL PRN Q5MIN PRN for CHEST PAIN, (Reported) Entered as Reported by: JO ANN PARRISH on 06/10/202011 Last Taken: Unknown Dose on 06/10/20 Last Action: Continued on 06/10/202158 by JO ANN PARRISH Justicifation of Admission Dx: Justifications for Admission: Justification of Admission Dx: Yes DOMINICK ROSADO MD Jun 11, 2020 14:35
[2020-06-11 15:00] VITALS: BP 139/73
--- NOTE | 2020-06-11 16:01 | NUR ---
Discharge Note: PT DISCHARGED HOME WITH SELF CARE. PT LEFT FACILITY VIA PRIVATE VEHICLE WITH FRIEND AT 1600. PT STABLE AND ALERT UPON DISCHARGE. PT PIV REMOVED FROM R AC WITHOUT COMPLICATIONS, BANDAGE APPLIED. PT EDUCATED ABOUT DISCHARGE INSTRUCTIONS, DISCHARGE MEDICATIONS, AND FOLLOW-UP CARE. PT EDUCATED TO ABOUT DOSE CHANGES IN METOPROLOL AND ADDING ON BP MEDICATION AMLODIPINE. ALL QUESTIONS ANSWERED BEFORE DISCHARGE. PT EDUCATED THAT DR. BELL'S OFFICE WOULD BE IN CONTACT TO SET UP ANOTHER APPOINTMENT FOR OUTPT COLONOSCOPY. PT LEFT WITH ALL PERSONAL BELONGINGS. RICK ARIAS Discharge instructions and discharge home medications reviewed with Patient and a copy given. All questions have been answered and understanding verbalized.
--- NOTE | 2020-06-11 17:15 | NUR ---
SW following for discharge planning. Spoke with RN and reviewed chart. Pt to discharge home today, self-care. SW consulted for advanced directives but pt discharged prior to SW being able to provide this information. No further SW needs at this time. Addendum: 06/12/20 at 1015 by [facility] for patient at [phone] to offer to mail advanced directive paperwork.
[2020-06-11] MEDS ORDERED: SIMVASTATIN 20 MG TABLET PO SCH (21:00)
[2020-06-11] MEDS ORDERED: ASPIRIN CHEWABLE 81 MG TABLET. PO SCH (21:00)
[2020-06-12] MEDS ORDERED: amLODIPine BESYLATE 5 MG TABLET PO SCH (09:00)
[2020-06-12] MEDS ORDERED: METOPROLOL SUCC 24HR ER 25 MG TAB.ER.24H. PO SCH (09:00)
== END 2020-06-11 16:00 | disposition home or self-care (01) ==
LOC: ER 14:00 → ED HOLD 17:13 → 5 NORTH 18:26
PROVIDERS: ADMIT Family Medicine; ATTEND Family Medicine
DX: I24.9 Acute ischemic heart disease, unspecified (principal); I16.0 Hypertensive urgency; R07.89 Other chest pain; I10 Essential (primary) hypertension; I25.10 Atherosclerotic heart disease of native coronary artery without angina pectoris; I45.10 Unspecified right bundle-branch block; K21.9 Gastro-esophageal reflux disease without esophagitis; E78.5 Hyperlipidemia, unspecified; F41.9 Anxiety disorder, unspecified; M81.0 Age-related osteoporosis without current pathological fracture; E78.00 Pure hypercholesterolemia, unspecified; Z79.82 Long term (current) use of aspirin; Z87.891 Personal history of nicotine dependence; Z90.49 Acquired absence of other specified parts of digestive tract; Z98.51 Tubal ligation status; Z23 Encounter for immunization
CPT/HCPCS: 36415; 71045; 80053; 83690; 83735; 83880; 84484; 85025; 90471; 90686; 93005; 96360; 99285; G0378; J7040; G0379